=== PATIENT | female | born 1985 | race Caucasian/White ===

== ENCOUNTER 2022-05-15 14:21 | Outpatient (REF) | payer BC, SELFPAY | END 2022-05-15 14:22 | disposition home or self-care (01) | LOC: HO.SH 14:21 | PROVIDERS: Visit Provider Nurse Practitioner Adult Health | DX: Z01.118 Encounter for examination of ears and hearing with other abnormal findings (principal); H93.293 Other abnormal auditory perceptions, bilateral; H93.19 Tinnitus, unspecified ear | CPT/HCPCS: 92552; 92556; 92567; 92588; 92700 ==